=== PATIENT | female | born 1970 | race Caucasian/White ===

== ENCOUNTER 2017-07-12 11:36 | Emergency (ER) | payer SELFPAY ==
[~2017-07-12] VITALS: Ht 154.9 cm; Wt 107.0 kg
[2017-07-12 11:39] VITALS: BP 209/90; PULSE 103; RESP 16; TEMP 98; O2SAT 97
[2017-07-12] MEDS ORDERED: VICT18IN SQ (11:52)
[2017-07-12] MEDS ORDERED: ATOR80TA45 PO (11:52)
[2017-07-12] MEDS ORDERED: VENTAER INH (11:52)
[2017-07-12] MEDS ORDERED: GLUC15009 PO (11:52)
[2017-07-12] MEDS ORDERED: VENL150T PO (11:52)
[2017-07-12] MEDS ORDERED: PRIL20TA2 PO (11:52)
[2017-07-12] MEDS ORDERED: LANTUS2P SQ (11:52)
[2017-07-12] MEDS ORDERED: LISI-515 PO ×2 (11:52→12:00)
[2017-07-12] MEDS ORDERED: MONT10TA2 PO (11:52)
[2017-07-12] MEDS ORDERED: SYMB80AE INH (11:52)
[2017-07-12] MEDS ORDERED: GLYB5TAB3 PO (11:52)
[2017-07-12] MEDS ORDERED: ROBA750T PO (12:00)
[2017-07-12] MEDS ORDERED: LISINOPRIL 20 MG TAB PO ONE (12:00)
[2017-07-12] MEDS ORDERED: ORPHENADRINE INJ 60 MG/2 ML AMP IM ONE (12:00)
[2017-07-12] MEDS ORDERED: OMEP40CA2 PO (12:00)
--- NOTE | 2017-07-12 12:01 | PD ---
HPI Chief Complaint: Musculoskeletal Complaint Time Seen by Provider: 11:42 Travel History International Travel<30 days: No Contact w/Intl Traveler<30days: No Traveled to known affect area: No History of Present Illness HPI 47-year-old female presents to the emergency department for evaluation of bilateral neck pain that radiates down the bilateral arms for one month. Patient states she moved down here recently does not have insurance on here. She has history of fibromyalgia, hypertension, diabetes, GERD. Patient states she ran out of her lisinopril yesterday and has been on of her omeprazole for 3 days. She is running out of the rest of her medications, but has not helped yet. Patient states the pain is worse with movement of the arms. No weakness. No fevers or chills. Patient is tearful my exam. No alleviating factors. Moderate severity. PFSH Past Medical History Asthma: Yes Depression: Yes High Cholesterol: Yes Diabetes: Yes Patient Takes Glucophage: No Fibromyalgia: Yes GERD: Yes Hypertension: Yes Influenza Vaccination: No ?: Not Past Surgical History Surgical History: No Previous Surgery Social History Alcohol Use: No Tobacco Use: No Substance Use: No Allergies-Medications (Allergen,Severity, Reaction): Coded Allergies: duloxetine (Verified Allergy, Unknown, 07/12/17) Reported Meds & Prescriptions Reported Meds & Active Scripts Active Reported Ventolin Hfa 18 GM Inh (Albuterol Sulfate) 90 Mcg/Act Aer 2 Puff INH Q4-6H PRN Symbicort Inh (Budesonide/Formoterol Fumarate) 80-4.5 Mcg/Act Aero 2 Puff INH Q12HR Atorvastatin (Atorvastatin Calcium) 80 Mg Tab 80 Mg PO HS Prilosec (Omeprazole Magnesium) 20 Mg Tab 2 Tab PO DAILY Victoza Inj (Liraglutide Inj) 18 Mg/3 Ml Pen 1.2 Mg SQ DAILY Lantus Inj (Insulin Glargine) 1,000 Unit/10 Ml Vial 60 Units SQ HS Venlafaxine ER 24 HR (Venlafaxine HCl) 150 Mg Tab 150 Mg PO DAILY Singulair (Montelukast Sodium) 10 Mg Tab 10 Mg PO HS Lisinopril 20 Mg Tab 20 Mg PO DAILY Glucosamine 1,500 Mg Tab 1,500 Mg PO DAILY Glyburide 5 Mg Tab 4 Mg PO DAILY Take with meals at the same time each day Review of Systems Except as stated in HPI: all other systems reviewed are Neg Physical Exam Narrative GENERAL: Well-nourished, well-developed female patient, afebrile. SKIN: Focused skin assessment warm/dry. HEAD: Normocephalic. Atraumatic. EYES: No scleral icterus. No injection or drainage. NECK: Supple, trachea midline. No JVD or lymphadenopathy. CARDIOVASCULAR: Regular rhythm without murmurs, gallops, or rubs. Patient is slightly tachycardic, but is obviously anxious and tearful my exam. RESPIRATORY: Breath sounds equal bilaterally. No accessory muscle use. Lungs sounds are clear to auscultation. GASTROINTESTINAL: Abdomen soft, non-tender, nondistended. MUSCULOSKELETAL: No cyanosis, or edema. Patient has tenderness over bilateral trapezius muscles. Bilateral upper extremity strength 5/5. BACK: Nontender without obvious deformity. No CVA tenderness. Data Data Last Documented VS Vital Signs Date Time Temp Pulse Resp B/P (MAP) Pulse Ox O2 Delivery O2 Flow Rate FiO2 07/12/17 11:39 98.0 103 16 209/90 (129) 97 Orders Orders Orphenadrine Inj (Norflex Inj) (07/12/17 12:00) Lisinopril (Prinivil) (07/12/17 12:00) MDM Medical Decision Making Medical Screen Exam Complete: Yes Emergency Medical Condition: Yes Medical Record Reviewed: Yes Differential Diagnosis Muscle strain versus muscle spasm versus radiculopathy versus medication refill Narrative Course 47-year-old female presents to the emergency department for evaluation of bilateral neck pain that radiates down the bilateral arms for one month, worse with movement. Physical exam is reassuring. Patient is hypertensive in triage , but is out of her lisinopril. She is given a dose here and will be given a prescription for her lisinopril and omeprazole. She is given Norflex 60 mg IM here and will be discharged prescription for Robaxin. She is encouraged to use a heating pad on low and follow-up the primary care physician. She is given information on the [facility] for follow-up and for further medication refills. She verbalizes agreement and understanding. The patient was discharged in stable condition with instructions, including return instructions and follow up instructions. Diagnosis Primary Impression: Muscle strain Referrals: [facility] 1 day Patient Instructions: General Instructions, Muscle Strain (ED) Additional Instructions: Take Robaxin as instructed as needed for muscle pain. Heating pad on low for 20 minutes 4-5 times daily. I refilled your lisinopril and omeprazole. Follow-up at the [facility]. Return to the emergency department for any acute worsening of symptoms. Med/Other Pt SpecificInfo: Prescription(s) given Scripts Lisinopril (Lisinopril) 20 Mg Tab 20 MG PO DAILY, #30 TAB 0 Refills Prov: Brenda Uriostegui 07/12/17 Omeprazole (Omeprazole) 40 Mg Cap 40 MG PO DAILY, #30 CAP 0 Refills Prov: Brenda Uriostegui 07/12/17 Methocarbamol (Robaxin) 750 Mg Tab 750 MG PO TID Y for MUSCLE SPASM, #21 TAB 0 Refills Prov: Brenda Uriostegui 07/12/17 Disposition: 01 DISCHARGE HOME Condition: Stable Brenda Uriostegui Jul 12, 2017 12:01
== END 2017-07-12 12:26 | disposition home or self-care (01) ==
LOC: PHEFT 11:36
DX: S16.1XXA Strain of muscle, fascia and tendon at neck level, initial encounter (principal); K21.9 Gastro-esophageal reflux disease without esophagitis; E11.9 Type 2 diabetes mellitus without complications; I10 Essential (primary) hypertension; M79.7 Fibromyalgia; R00.0 Tachycardia, unspecified; X58.XXXA Exposure to other specified factors, initial encounter; Z79.4 Long term (current) use of insulin
CPT/HCPCS: 96372; 99283; J2360

== ENCOUNTER 2017-08-16 13:18 | Emergency (ER) | payer SELFPAY ==
[~2017-08-16] VITALS: Ht 154.9 cm; Wt 108.7 kg
[~2017-08-16 13:18] MED LIST: ATOR80TA45 PO; GLUC15009 PO; GLYB5TAB3 PO; LANTUS2P SQ; LISI-515 PO; MONT10TA2 PO; OMEP40CA2 PO; PRIL20TA2 PO; ROBA750T PO; SYMB80AE INH; VENL150T PO; VENTAER INH; VICT18IN SQ
[2017-08-16 13:26] VITALS: BP 197/105; PULSE 93; RESP 22; TEMP 98.6; O2SAT 96
[2017-08-16 13:49] VITALS: BP 157/94; PULSE 88; RESP 18; TEMP 98.6; O2SAT 95
[2017-08-16] MEDS ORDERED: ROBA750T PO (14:08)
[2017-08-16] MEDS ORDERED: GLYB5TAB3 PO (14:08)
[2017-08-16] MEDS ORDERED: VICT18IN SQ (14:08)
[2017-08-16] MEDS ORDERED: VENL150T PO (14:08)
[2017-08-16] MEDS ORDERED: GLUC15009 PO (14:08)
[2017-08-16] MEDS ORDERED: LANTUS2P SQ (14:08)
[2017-08-16] MEDS ORDERED: LISI-515 PO (14:08)
[2017-08-16] MEDS ORDERED: ATOR80TA45 PO (14:08)
[2017-08-16] MEDS ORDERED: OMEP40CA2 PO (14:08)
[2017-08-16] MEDS ORDERED: VENTAER INH (14:08)
[2017-08-16] MEDS ORDERED: SYMB80AE INH (14:08)
[2017-08-16] MEDS ORDERED: MONT10TA2 PO (14:08)
--- NOTE | 2017-08-16 14:30 | PD ---
HPI . Shortness of breath Chief Complaint: Respiratory Distress Time Seen by Provider: 13:52 Travel History International Travel<30 days: No Contact w/Intl Traveler<30days: No Traveled to known affect area: No History of Present Illness HPI Patient presents with a chief complaint of "I'm tired of not being able to breathe" and "I'm tired of hurting." She reports several medical problems including fibromyalgia, asthma, hypertension, diabetes, GERD. She states that she has recently moved to the area and does not have a primary care provider. She states that she does not have any insurance. She has run out or is running out of all of her medications. This is causing her to have increased symptoms. She states that her cough and shortness of breath is worse at night. She has some occasional white phlegm. The onset of her increasing symptoms was 2-3 weeks ago. PFSH Past Medical History Asthma: Yes Depression: Yes High Cholesterol: Yes COPD: Yes Diabetes: Yes Patient Takes Glucophage: No Diminished Hearing: No Fibromyalgia: Yes GERD: Yes Hypertension: Yes Tetanus Vaccination: Unknown ?: Not Social History Alcohol Use: No Tobacco Use: No Substance Use: No Allergies-Medications (Allergen,Severity, Reaction): Coded Allergies: duloxetine (Verified Allergy, Unknown, 08/16/17) Reported Meds & Prescriptions Reported Meds & Active Scripts Active Lisinopril 20 Mg Tab 20 Mg PO DAILY Omeprazole 40 Mg Cap 40 Mg PO DAILY Robaxin (Methocarbamol) 750 Mg Tab 750 Mg PO TID PRN Ventolin Hfa 18 GM Inh (Albuterol Sulfate) 90 Mcg/Act Aer 2 Puff INH Q4-6H PRN Symbicort Inh (Budesonide/Formoterol Fumarate) 80-4.5 Mcg/Act Aero 2 Puff INH Q12HR Atorvastatin (Atorvastatin Calcium) 80 Mg Tab 80 Mg PO HS Victoza Inj (Liraglutide Inj) 18 Mg/3 Ml Pen 1.2 Mg SQ DAILY Lantus Inj (Insulin Glargine) 1,000 Unit/10 Ml Vial 60 Units SQ HS 30 Days Venlafaxine ER 24 HR (Venlafaxine HCl) 150 Mg Tab 150 Mg PO DAILY Singulair (Montelukast Sodium) 10 Mg Tab 10 Mg PO HS Glucosamine 1,500 Mg Tab 1,500 Mg PO DAILY 30 Days Glyburide 5 Mg Tab 4 Mg PO DAILY Take with meals at the same time each day Review of Systems Except as stated in HPI: all other systems reviewed are Neg General / Constitutional: No: Fever, Chills Respiratory: Positive: Cough, Shortness of Breath Musculoskeletal: Positive: Myalgias, Edema Psychiatric: Positive: Anxiety Physical Exam Narrative GENERAL: Awake and alert. Crying. SKIN: Warm and dry. Normal color and turgor. HEAD: Normocephalic/atraumatic. EYES: Pupils are equal. Extraocular movements are intact. NECK: Normal range of motion. CARDIOVASCULAR: Regular rate and rhythm. Heart sounds are normal. RESPIRATORY: Nonlabored respirations. Lungs are clear with good air movement throughout. MUSCULOSKELETAL: Atraumatic. NEUROLOGICAL: Nonfocal. PSYCHIATRIC: Sad and anxious Data Data Last Documented VS Vital Signs Date Time Temp Pulse Resp B/P (MAP) Pulse Ox O2 Delivery O2 Flow Rate FiO2 08/16/17 14:10 08/16/17 13:49 98.6 88 18 95 Room Air Orders Orders Ed Discharge Order (08/16/17 14:08) [facility] Medical Decision Making Medical Screen Exam Complete: Yes Emergency Medical Condition: Yes Medical Record Reviewed: Yes (patient was seen here in July for pain in her shoulders and upper extremities.) Differential Diagnosis Differential diagnosis of dyspnea includes but is not limited to congestive heart failure, pneumonia, wheezing, pneumothorax, pulmonary embolism Narrative Course This patient presents with the chief complaint of dyspnea. In fact, she is here for multiple problems including pain secondary to fibromyalgia, hypertension, diabetes, GERD and asthma. She does not have a primary care provider to prescribe her usual medications. Physical exam is unremarkable. She is not having any respiratory distress at this time. I have refilled all of her usual medications. Diagnosis Primary Impression: Encounter for medication refill Additional Impressions: Asthma Qualified Codes: J45.20 - Mild intermittent asthma, uncomplicated Hypertension Qualified Codes: I10 - Essential (primary) hypertension Diabetes Qualified Codes: E11.9 - Type 2 diabetes mellitus without complications; Z79.4 - watermelon inspector (current) use of insulin Fibromyalgia Acid reflux Qualified Codes: K21.9 - Gastro-esophageal reflux disease without esophagitis Referrals: [facility] Patient Instructions: General Instructions, Medication Refill, ED Departure Forms: Tests/Procedures Scripts Lisinopril (Lisinopril) 20 Mg Tab 20 MG PO DAILY, #30 TAB 0 Refills Prov: Milagro Polk MD 08/16/17 Omeprazole (Omeprazole) 40 Mg Cap 40 MG PO DAILY, #30 CAP 0 Refills Prov: Milagro Polk MD 08/16/17 Methocarbamol (Robaxin) 750 Mg Tab 750 MG PO TID Y for MUSCLE SPASM, #21 TAB 0 Refills Prov: Milagro Polk MD 08/16/17 Albuterol 18 GM Inh (Ventolin Hfa 18 GM Inh) 90 Mcg/Act Aer 2 PUFF INH Q4-6H Y for SHORTNESS OF BREATH, #1 INHALER 0 Refills Prov: Milagro Polk MD 08/16/17 Budesonide-Formoterol Inh (Symbicort Inh) 80-4.5 Mcg/Act Aero 2 PUFF INH Q12HR for Asthma Management, #1 INHALER 0 Refills Prov: Milagro Polk MD 08/16/17 Atorvastatin (Atorvastatin) 80 Mg Tab 80 MG PO HS for Cholesterol Management, #30 TAB 0 Refills Prov: Milagro Polk MD 08/16/17 Liraglutide Inj (Victoza Inj) 18 Mg/3 Ml Pen 1.2 MG SQ DAILY, #1 PEN 0 Refills Prov: Milagro Polk MD 08/16/17 Insulin Glargine Inj (Lantus Inj) 1,000 Unit/10 Ml Vial 60 UNITS SQ HS for Blood Sugar Management for 30 Days, VIAL 0 Refills Prov: Milagro Polk MD 08/16/17 Venlafaxine ER 24 HR (Venlafaxine ER 24 HR) 150 Mg Tab 150 MG PO DAILY, #30 TAB 0 Refills Prov: Milagro Polk MD 08/16/17 Montelukast (Singulair) 10 Mg Tab 10 MG PO HS, #30 TAB 0 Refills Prov: Milagro Polk MD 08/16/17 Glucosamine (Glucosamine) 1,500 Mg Tab 1500 MG PO DAILY for Herbal Supplements for 30 Days, #30 TAB 0 Refills Prov: Milagro Polk MD 08/16/17 Glyburide (Glyburide) 5 Mg Tab 4 MG PO DAILY for Blood Sugar Management, #30 TAB 0 Refills Take with meals at the same time each day Prov: Milagro Polk MD 08/16/17 Disposition: 01 DISCHARGE HOME Condition: Stable Milagro Polk MD Aug 16, 2017 14:29
== END 2017-08-16 14:22 | disposition home or self-care (01) ==
LOC: PHED 13:18
DX: J45.20 Mild intermittent asthma, uncomplicated (principal); Z76.0 Encounter for issue of repeat prescription; I10 Essential (primary) hypertension; M79.7 Fibromyalgia; K21.9 Gastro-esophageal reflux disease without esophagitis; E11.9 Type 2 diabetes mellitus without complications
CPT/HCPCS: 99284